=== PATIENT | male | born 1960 | race Caucasian/White ===

== ENCOUNTER 2019-07-08 11:50 | Emergency (ER) | payer MEDICARE, OTHER ==
[~2019-07-08 11:50] MED LIST: Iopamidol 370 76% 100 ML VIAL ONE
[2019-07-08] MEDS ORDERED: Ondansetron PF 4 MG/2 ML Vial ONE (12:18)
[2019-07-08] MEDS ORDERED: Acetaminophen 500 MG TAB ONE (12:18)
[2019-07-08] MEDS ORDERED: Ketorolac Tromethamine 30 MG/ML VIAL ONE (12:18)
[2019-07-08 12:38] LABS: ALT (SGPT) 35 U/L (8-55); AST (SGOT) 32 U/L (5-34); Albumin 4.4 g/dL (3.5-5.0); Alkaline Phosphatase 81 U/L (40-110); Anion Gap 17 mmol/L (10-20); BUN (Urea Nitrogen) 11 mg/dL (8.4-25.7); Bilirubin, Total 1.7 mg/dL (0.2-1.2); Calc. Creatinine Clearance 0 mL/min (70-130); Carbon Dioxide 25 mmol/L (22-29); Chloride 97 mmol/L (98-107); Estimated GFR-MDRD 83; Glucose 127 mg/dL (70-105); Lipase 8 U/L (8-78); Potassium 3.9 mmol/L (3.5-5.1); Sodium 135 mmol/L (136-145)
[2019-07-08 12:43] LABS: Mean Corpuscular HGB CONC 31.8 g/dL (32.0-36.0); Mean Corpuscular Hemoglobin 28.8 pg (27.0-31.0); Mean Corpuscular Volume 90.6 fL (78.0-98.0); Mean Platelet Volume 9.6 fL (7.4-10.4); Platelet Count 494 thou/uL (130-400); RBC Distribution Width 12.6 % (11.5-14.5); Red Blood Cell (RBC) Count 5.54 mill/uL (4.70-6.10); White Blood Cell (WBC) Count 27.2 thou/uL (4.8-10.8)
[2019-07-08 12:45] LABS: Eosinophils 1 % (0-10); Lymphocytes 13 % (21-51); MDiff Complete? YES; Monocytes 1 % (0-10); Neutrophil 85 % (42-75)
[2019-07-08 12:47] LABS: Globulin 4.1 g/dL (2.4-3.5); Protein, Total 8.5 g/dL (6.0-8.3)
[2019-07-08] MEDS ORDERED: Sodium Chloride 0.9% 100 ML ONE (13:02)
[2019-07-08] MEDS ORDERED: cefTRIAXone\\ROCEPHIN 2 GM VIAL ONE (13:02)
[2019-07-08 13:07] LABS: Bilirubin Unable to Interpret (Negative); Blood, Urine Unable to Interpret (Negative); Clarity Slightly Cloudy (Clear); Glucose, Urine (Dipstick) Unable to Interpret mg/dL (Negative); Leukocyte Unable to Interpret (Negative); Nitrite Unable to Interpret (Negative); Protein, Urine (Dipstick) Unable to Interpret mg/dL (Neg-Trace); Urobilinogen UNABLE TO INTERPRET mg/dL (Less than 2)
[2019-07-08 13:11] LABS: Bacteria/HPF None Seen HPF (None Seen); Squamous Epithelial None Seen HPF (0-3); WBC/HPF 0-3 HPF (0-3)
--- NOTE | 2019-07-08 13:50 | RAD ---
CHEST 2 VIEWS: DATE: 07/08/2019. COMPARISON: No prior films are available for comparison. FINDINGS: The heart is normal in size and the lungs are clear. There is no sign of pneumonia. No pleural effu sions are seen. IMPRESSION: No acute thoracic finding. POS: HOME
--- NOTE | 2019-07-08 14:06 | CT ---
CT ABDOMEN AND PELVIS WITH CONTRAST: DATE: 07/08/2019. FINDINGS: Spiral CT of the abdomen and pelvis was done to evaluate lower abdominal pain. Axial slices were acq uired followed by coronal and sagittal reconstructions. The lung bases are clear. There are some areas of scarring posteriorly in each lower lobe. No major infiltrates were seen. The liver, spleen, pancreas, adrenal glands, kidneys, gallbladder, and abdominal aorta showed no acut e findings. There are several small cystic lesions in the liver, the largest measuring up to 4 cm in size in the left lobe (though it may actually be several cysts joined together). Most others are sm all subcentimeter cysts. The odds of these being significant are low. A small hiatal hernia was noted. No free air or free fluid was seen in the upper abdomen. CT of the pelvis showed extensive diverticulosis in the sigmoid region. The lower sigmoid colon and rectum show thickening of their loo, and there is some inflammatory change around the bowel here. I would presume diverticulitis and/or proctocolitis. In addition, however, I note that the patient's prostate is quite large and inhomogeneous. The seminal vesicles are both uniformly large, and the u rinary bladder is quite thick. The bladder thickening could be due to chronic outlet obstruction, bu t also infection. It is currently unclear where the true locus of infection inflammation is, but it probably involves multiple structures listed above. See comments below. No substantial free fluid c ollection was seen. No free air was seen around this area. Some mild degenerative changes are seen in the spine. IMPRESSION: 1. Extensive sigmoid diverticulosis with inflammatory changes around the distal sigmoid colon. Ther e is also thickening of the distal sigmoid colon through the rectum. It would probably be best to in itially treat this as a case of diverticulitis with secondary involvement of surrounding structures; however, the possibility of proctocolitis causing the inflammatory changes primarily is raised as wel l. 2. Enlarged prostate, enlarged seminal vesicles, and very thick urinary bladder wall. Some of these structures could be involved by adjacent inflammation, but regardless, it would probably be prudent for this patient to electively see a urologist to investigate this region given the inhomogeneity of the prostate and severe thickening of the bladder wall. Additionally, the prominent enlargement of t he seminal vesicles might be investigated as well, though it could be secondary to infection. 3. Several hepatic cysts, but of low probability of significance. 4. Small hiatal hernia. Findings discussed with Dr. Grijalva at 1330 on 07/08/2019. CODE CR POS: HOME
[2019-07-08] MEDS ORDERED: metroNIDAZOLE 500 MG/100 ML BAG ONE (14:12)
[2019-07-08] MEDS ORDERED: Fentanyl 100 MCG/2 ML VIAL ONE (14:12)
[2019-07-08 15:19] LABS: Lactic Acid 0.8 mmol/L (0.5-2.2)
== END 2019-07-08 15:17 | disposition short-term general hospital (02) ==
LOC: BURERS 11:50
DX: A41.9 Sepsis, unspecified organism (principal); K57.92 Diverticulitis of intestine, part unspecified, without perforation or abscess without bleeding; F17.210 Nicotine dependence, cigarettes, uncomplicated; Z79.899 Other long term (current) drug therapy
CPT/HCPCS: 36415; 71046; 74177; 80053; 81003; 81015; 82274; 83605; 83690; 85025; 85379; 87040; 87086; 87633; 87635; 87798; 87804; 93005; 94760; 96361; 96365; 96367; 96375; J0696; J1885; J2405; J3010; J3370; J3490; Q9967; U0002

== ENCOUNTER 2019-09-12 19:11 | Emergency (ER) | payer OTHER, SELFPAY ==
[2019-09-12 19:43] LABS: Bilirubin Small (Negative); Blood, Urine Large (Negative); Clarity Cloudy (Clear); Glucose, Urine (Dipstick) Negative (Negative); Leukocyte Negative (Negative); Nitrite Negative (Negative); Protein, Urine (Dipstick) > or equal to 300 mg/dL (Neg-Trace); Urobilinogen 0.2 mg/dL (Less than 2)
[2019-09-12 19:45] LABS: RBC/HPF Greater than 50 HPF (0-3)
[2019-09-12 19:46] LABS: Bacteria/HPF 1+ HPF (None Seen); Broad Cast None Seen LPF (None Seen); Calcium Oxalate Crystals None Seen HPF (None Seen); Cellular Cast None Seen LPF (None Seen); Epithelial Cast None Seen LPF (None Seen); Fatty Cast None Seen LPF (None Seen); Mucous/LPF 1+ LPF (<2+); Other Casts None Seen LPF (None Seen); Oval Fat Bodies/HPF None Seen HPF (None Seen); Red Blood Cell Cast None Seen LPF (None Seen); Renal Epithelial None Seen HPF (None Seen); Sperm/HPF None Seen HPF (None Seen); Squamous Epithelial None Seen HPF (0-3); Transitional Epithelial None Seen HPF (None Seen); Trichomonas/HPF None Seen HPF (None Seen); Triple Phosphate Crystal None Seen HPF (None Seen); Unclassified Crystals None Seen HPF (None Seen); Waxy Cast None Seen LPF (None Seen); White Blood Cell Cast None Seen LPF (None Seen); Yeast-Budding None Seen HPF (None Seen); Yeast-Hyphae None Seen HPF (None Seen)
[2019-09-12] MEDS ORDERED: Oxybutynin 5 MG TAB PO SCH ×2 (20:00)
== END 2019-09-12 20:03 | disposition home or self-care (01) ==
LOC: BURERS 19:11
DX: N32.89 Other specified disorders of bladder (principal); F17.210 Nicotine dependence, cigarettes, uncomplicated; Z79.899 Other long term (current) drug therapy
CPT/HCPCS: 81003; 81015

== ENCOUNTER 2021-01-26 08:47 | Outpatient (CLI) | payer BC | END 2021-01-26 08:48 | disposition home or self-care (01) | LOC: BURCT 08:47 | PROVIDERS: ATTEND Family Medicine | DX: N32.1 Vesicointestinal fistula (principal); N13.30 Unspecified hydronephrosis; N13.4 Hydroureter; K76.89 Other specified diseases of liver; K59.00 Constipation, unspecified | CPT/HCPCS: 74177; Q9967 ==